=== PATIENT | female | born 1960 | race Caucasian/White ===

== ENCOUNTER → 2016-07-31 | Outpatient (CLI) | payer SELFPAY ==
[2016-07-31 13:59] LABS: CREATININE 0.7 mg/dL (0.5-1.1); ESTIMATED GFR (MDRD EQUATION) > 60
== END | disposition disaster alternative care site (69) ==
LOC: GRAD 13:19 → GLAB 13:19 → GRAD 15:00
PROVIDERS: Surgery
DX: M27.2 Inflammatory conditions of jaws (principal); L03.211 Cellulitis of face
CPT/HCPCS: A9577